=== PATIENT | male | born 1995 | race Two or more races ===

== ENCOUNTER 2021-02-18 17:46 | Emergency (ER) | payer BC ==
[2021-02-18] MEDS ORDERED: Sodium Chloride 0.9% 1,000 ML IV ONE ×2 (17:53→19:03)
--- NOTE | 2021-02-18 17:53 | EDM.PDOC ---
ED HPI GENERAL MEDICAL PROBLEM - General Chief Complaint: Gastrointestinal Problem Stated Complaint: KEEP THROWING UP Time Seen by Provider: 02/18/21 17:52 Source of Information: Reports: Patient History Limitations: Reports: No Limitations - History of Present Illness INITIAL COMMENTS - FREE TEXT/NARRATIVE: HISTORY AND PHYSICAL: History of present illness: Patient is a 26-year-old male who presents to the emergency room with complaints of nausea and vomiting since this afternoon. He states yesterday he went out to eat with some friends, felt fine but believes he has "food poisoning" from this interaction. States his abdomen is slightly sore from retching, nonspecific abdominal pain. Two loose stools this afternoon. Patient denies any fever, chills, headache, change in vision, syncope or near syncope. Denies any chest pain, back pain, shortness of breath or cough. Denies any constipation or dysuria. Has not noted any blood in urine or stool. Patient has not been eating and drinking appropriately since after this morning. He is concerned he may have been exposed to COVID-19 due to his "outing" and wants to be tested. Review of systems: As per history of present illness and below otherwise all systems reviewed and negative. Past medical history: As per history of present illness and as reviewed below otherwise noncontributory. Surgical history: As per history of present illness and as reviewed below otherwise noncontributory. Social history: See social history for further information Family history: As per history of present illness and as reviewed below otherwise noncontributory. Physical exam: General: Well developed and well nourished 26 year old male. Alert and orientated x 3. Nontoxic in appearance and in no acute distress. Vital signs are stable and have been reviewed by me. Nursing notes were reviewed. HEENT: Atraumatic, normocephalic, pupils equal and reactive bilaterally, negative for conjunctival pallor or scleral icterus, mucous membranes moist, TMs normal bilaterally, throat clear, neck supple, nontender, trachea midline. No drooling or trismus noted. No meningeal signs. No hot potato voice noted. Lungs: Clear to auscultation bilaterally. No wheezes, rales, or rhonchi. Chest nontender. Normal work of breathing, no accessory muscles used. Heart: S1S2, regular rate and rhythm without overt murmur, gallops, or rubs. No JVD. No peripheral edema Abdomen: Soft, nondistended, nontender. Normoactive bowel sounds. Negative for masses or costovertebral tenderness. Skin: Intact, warm, dry. No lesions or rashes noted. Hematologic: No petechiae or purpra. Mucosa appropriate color and normal nail bed color and refill. Extremities: Atraumatic, moves all extremities per self without difficulty or deficits, negative for cords or calf pain. Neurovascular unremarkable. Neuro: Awake, alert, oriented. Cranial nerves II through XII unremarkable. Cerebellum unremarkable. Motor and sensory unremarkable throughout. Exam no nfocal. Psychiatric: Mood and affect are appropriate. Normal thought process. Answering questions appropriately. Notes: *This patient was seen and evaluated during the 2019 SARS-CoV-2 [facility] pandemic period. Community viral transmission is ongoing at time of this encounter and the emergency department is operating under pandemic response procedures. Patient has a leukocytosis with minimal abdominal pain which he describes as "sore" from retching. We discussed doing a CT of the abdomen and pelvis which she is agreeable. He is also requesting COVID-19 testing as he is concerned he has been exposed. CT shows fluid content of the small bowel and colon is mildly prominent suggestive of a diarrheal illness. There is no obstruction. Vitals have improved. Patient feels better. I have talked with the patient about today's findings, in addition to providing specific details for plan of care. Reassessment at the time of disposition demonstrates that the patient is in no acute distress. The patient is stable for discharge, counseling was provided and we discussed in great detail signs and symptoms that would prompt them to return to the Emergency Department. Medication, follow up and supportive care measures were reviewed and discussed. Voices understanding and is agreeable to plan of care. Denies any further questions or concerns at this time. Diagnostics: CBC, CMP, lipase, COVID, CT abd/pelvis Therapeutics: IV fluid, Zofran Prescription: Zofran Impression: Gastroenteritis Plan: 1. You were evaluated today on an emergent basis. Your symptoms are viral. Rest, drink plenty of fluids and add food back into your diet once you start feeling better (bananas, rice, toast, applesauce, etc...) 2. You can alternate Tylenol and ibuprofen as needed for pain and fever management. Zofran as needed for nausea. 3. We encourage you to follow up with your primary care provider and/or recommended specialist in the next few days for re-evaluation and further care/management. 4. If your symptoms should worsen, new symptoms develop or any of the signs and symptoms we discussed should arise please return to the emergency room or call 911 (if needed). Definitive disposition and diagnosis as appropriate pending reevaluation and review of above. abdominal Pain Score (Numeric/FACES): 3 - Related Data Allergies Allergy/AdvReac Type Severity Reaction Status Date / Time No Known Allergies Allergy Verified 02/18/21 18:30 Home Meds: Home Meds Ondansetron [Zofran ODT] 4 mg PO Q6H PRN #8 tab.dis 02/18/21 [Rx] ED ROS GENERAL - Review of Systems Review Of Systems: Comprehensive ROS is negative, except as noted in HPI. ED EXAM, GI/ABD - Physical Exam Exam: See Below (See dictation) Course - Vital Signs Last Recorded V/S: Last Vital Signs Temp 97.8 F 02/18/21 18:00 Pulse 120 H 02/18/21 18:00 Resp 16 02/18/21 18:00 BP 134/74 02/18/21 18:00 Pulse Ox 97 02/18/21 18:00 - Orders/Labs/Meds Orders: Active Orders 24 hr Category Date Time Status UA RFX YURI AND CULT IF INDIC [URIN] Stat Lab 02/18/21 19:32 Ordered Sodium Chloride 0.9% [Normal Saline] 1,000 ml Med 02/18/21 19:03 Active IV STAT Medication Orders Sodium Chloride (Normal Saline) 1,000 mls @ 150 mls/hr IV STAT ONE Stop: 02/19/21 01:42 Last Admin: 02/18/21 19:11 Dose: 150 mls/hr Documented by: ISAIAS Labs: Laboratory Tests 02/18/21 02/18/21 02/18/21 Range/Units 18:10 18:10 19:20 WBC 14.13 H (4.0-11.0) K/uL RBC 5.54 (4.50-5.90) M/uL Hgb 17.6 H (13.0-17.0) g/dL Hct 49.4 (38.0-50.0) % MCV 89.2 (80.0-98.0) fL MCH 31.8 (27.0-32.0) pg MCHC 35.6 (31.0-37.0) g/dL RDW Std Deviation 41.6 (28.0-62.0) fl RDW Coeff of Lindsay 13 (11.0-15.0) % Plt Count 181 (150-400) K/uL MPV 10.80 (7.40-12.00) fL Neut % (Auto) 94.1 H (48.0-80.0) % Lymph % (Auto) 3.4 L (16.0-40.0) % Lane % (Auto) 2.4 (0.0-15.0) % Eos % (Auto) 0.0 (0.0-7.0) % Baso % (Auto) 0.1 (0.0-1.5) % Neut # (Auto) 13.3 H (1.4-5.7) K/uL Lymph # (Auto) 0.5 L (0.6-2.4) K/uL Lane # (Auto) 0.3 (0.0-0.8) K/uL Eos # (Auto) 0.0 (0.0-0.7) K/uL Baso # (Auto) 0.0 (0.0-0.1) K/uL Nucleated RBC % 0.0 /100WBC Nucleated RBCs # 0 K/uL Sodium 138 (136-148) mmol/L Potassium 4.0 (3.5-5.1) mmol/L Chloride 103 (98-107) mmol/L Carbon Dioxide 25.9 (21.0-32.0) mmol/L BUN 27 H (7.0-18.0) mg/dL Creatinine 1.3 (0.8-1.3) mg/dL Est Cr Clr Drug Dosing 84.60 mL/min Estimated GFR (MDRD) > 60.0 ml/min Glucose 124 H (74-106) mg/dL Calcium 9.2 (8.5-10.1) mg/dL Total Bilirubin 0.8 (0.2-1.0) mg/dL AST 19 (15-37) IU/L ALT 36 (14-63) IU/L Alkaline Phosphatase 92 (46-116) U/L Total Protein 8.1 (6.4-8.2) g/dL Albumin 4.1 (3.4-5.0) g/dL Globulin 4.0 (2.6-4.0) g/dL Albumin/Globulin Ratio 1.0 (0.9-1.6) Lipase 67 L (73-393) U/L SARS-CoV-2 RNA (KRYSTAL) NEGATIVE (NEGATIVE) Meds: Medications Generic Name Dose Route Start Last Admin Trade Name Freq PRN Reason Stop Dose Admin Sodium Chloride 1,000 mls @ 150 mls/hr 02/18/21 19:03 02/18/21 19:11 Normal Saline IV 02/19/21 01:42 150 mls/hr STAT ONE Administration Discontinued Medications Generic Name Dose Route Start Last Admin Trade Name Freq PRN Reason Stop Dose Admin Sodium Chloride 1,000 mls @ 999 mls/hr 02/18/21 17:53 02/18/21 18:14 Normal Saline IV 02/18/21 18:53 999 mls/hr STAT ONE Administration Iopamidol 100 ml 02/18/21 19:11 02/18/21 19:22 Iopamidol 755 Mg/Ml 500 Ml Multipack Bottle IVPUSH 02/18/21 19:12 100 ml ONETIME STA Administration Ondansetron HCl 4 mg 02/18/21 18:01 02/18/21 18:14 Ondansetron 4 Mg/2 Ml Sdv IVPUSH 02/18/21 18:02 4 mg ONETIME ONE Administration Departure - Departure Time of Disposition: 19:52 Disposition: Home, Self-Care 01 Clinical Impression: Gastroenteritis - Discharge Information Prescriptions: Ondansetron [Zofran ODT] 4 mg PO Q6H PRN #8 tab.dis PRN Reason: Nausea Instructions: Viral Gastroenteritis, Adult, [id number] Referrals: PCP,Unobtain [Primary Care Provider] - Forms: ED Department Discharge Additional Instructions: The following information is given to patients seen in the emergency department who are being discharged to home. This information is to outline your options for follow-up care. We provide all patients seen in our emergency department with a follow-up referral. The need for follow-up, as well as the timing and circumstances, are variable depending upon the specifics of your emergency department visit. If you don't have a primary care physician on staff, we will provide you with a referral. We always advise you to contact your personal physician following an emergency department visit to inform them of the circumstance of the visit and f or follow-up with them and/or the need for any referrals to a consulting specialist. The emergency department will also refer you to a specialist when appropriate. This referral assures that you have the opportunity for follow-up care with a specialist. All of these measure are taken in an effort to provide you with optimal care, which includes your follow-up. Under all circumstances we always encourage you to contact your private physician who remains a resource for coordinating your care. When calling for follow-up care, please make the office aware that this follow-up is from your recent emergency room visit. If for any reason you are refused follow-up, please contact the [facility] at and asked to speak to the emergency department charge nurse. [facility] [address] [place] [id number] [place] [address] Thank you for choosing the [facility] emergency department in [place] for your medical needs today. It was a pleasure caring for you. Today you were seen in the emergency department for nausea and vomiting. 1. You were evaluated today on an emergent basis. Your symptoms are viral. Rest, drink plenty of fluids and add food back into your diet once you start feeling better (bananas, rice, toast, applesauce, etc...) 2. You can alternate Tylenol and ibuprofen as needed for pain and fever management. Zofran as needed for nausea. 3. We encourage you to follow up with your primary care provider and/or recommended specialist in the next few days for re-evaluation and further care/management. 4. If your symptoms should worsen, new symptoms develop or any of the signs and symptoms we discussed should arise please return to the emergency room or call 911 (if needed). Sepsis Event Note (ED) - Focused Exam Vital Signs: Vital Signs Temp Pulse Resp BP Pulse Ox 02/18/21 18:00 97.8 F 120 H 16 134/74 97 - My Orders Last 24 Hours: My Active Orders 02/18/21 19:03 Sodium Chloride 0.9% [Normal Saline] 1,000 ml IV STAT 02/18/21 19:32 UA RFX YURI AND CULT IF INDIC [URIN] Stat - Assessment/Plan Last 24 Hours: My Active Orders 02/18/21 19:03 Sodium Chloride 0.9% [Normal Saline] 1,000 ml IV STAT 02/18/21 19:32 UA RFX YURI AND CULT IF INDIC [URIN] Stat
[2021-02-18] MEDS ORDERED: Ondansetron 4 MG/2 ML SDV IVPUSH ONE (18:01)
[2021-02-18 18:55] LABS: BLOOD UREA NITROGEN,BUN 27 mg/dL (7.0-18.0); CARBON DIOXIDE,CO2 25.9 mmol/L (21.0-32.0); CHLORIDE,CL 103 mmol/L (98-107); GLUCOSE RANDOM 124 mg/dL (74-106); LIPASE 67 U/L (73-393); SODIUM,NA 138 mmol/L (136-148)
[2021-02-18] MEDS ORDERED: Iopamidol 755 MG/ML 500 ML Multipack Bottle IVPUSH STA (19:11)
--- NOTE | 2021-02-18 19:42 | CT ---
Clinical INDICATION: Nausea vomiting. Generalized abdominal pain. TECHNIQUE: Axial intravenously infused CT cuts were performed above the diaphragm to below the ischial tuberosities. 100 mL of Isovue-370 has been injected intravenously. FINDINGS: The appendix is not inflamed. The fluid content of the small bowel and colon is mildly prominent suggestive of a diarrheal illness. There is no obstruction. There is no free intraperitoneal air or fluid. There are no enlarged retroperitoneal or mesenteric lymph nodes. The urinary bladder, seminal vesicles and prostate gland appear normal. There are no enlarged iliac or inguinal lymph nodes. The are no nodules or masses at the lung bases. There are no lytic or sclerotic skeletal lesions. IMPRESSION: The fluid content of the small bowel and colon is mildly prominent suggestive of a diarrheal illness. There is no obstruction. Please note that all CT scans at this facility use dose modulation, iterative reconstruction, and/or weight-based dosing when appropriate to reduce radiation dose to as low as reasonably achievable. Dictated by Sánchez Crabtree MD @ Feb 18 2021 7:36PM Signed by Dr. Sánchez Crabtree @ Feb 18 2021 7:41PM
== END 2021-02-18 20:35 | disposition home or self-care (01) ==
LOC: MW.ED 17:46
DX: K52.9 Noninfective gastroenteritis and colitis, unspecified (principal); Z20.822 Contact with and (suspected) exposure to COVID-19
CPT/HCPCS: 74177; 80053; 83690; 85025; 87635; 96374; 99284; J2405; J7030; Q9967; 99283; U0002